=== PATIENT | female | born 1945 ===

== ENCOUNTER 2018-01-28 12:58 | Inpatient (IN) | payer OTHER ==
[~2018-01-28] VITALS: Ht 157.5 cm; Wt 67.1 kg
[2018-01-28] MEDS ORDERED: PAXIL20 MG PO (15:05)
[2018-01-28] MEDS ORDERED: GEODON60 MG PO (15:05)
[2018-01-28] MEDS ORDERED: CLONAZEPAM1 MG PO (15:06)
[2018-02-04] MEDS ORDERED: HYOSCYAMINE0.125 M1 SL (12:21)
[2018-02-04] MEDS ORDERED: GAS RELIEF125 MG PO (12:22)
[2018-02-04] MEDS ORDERED: NEURONTIN300 MG PO (12:23)
[2018-02-04] MEDS ORDERED: INTESTINEX680 M1 PO (12:24)
== END 2018-02-04 14:58 | disposition home or self-care (01) | DRG 331 ==
LOC: O/R 02-01 08:16 → SURG 02-01 08:16 → SURH 02-01 09:00 → SURG 02-01 16:03
PROVIDERS: Surgery
PROC: 07TC4ZZ Resection of Pelvis Lymphatic, Percutaneous Endoscopic Approach (ICD-10-PCS; 2018-02-01)
PROC: 0DTF4ZZ Resection of Right Large Intestine, Percutaneous Endoscopic Approach (ICD-10-PCS; principal; 2018-02-01 09:00)
DX: C18.2 Malignant neoplasm of ascending colon (principal)